=== PATIENT | male | born 1965 | race Caucasian/White ===

== ENCOUNTER 2023-05-29 11:35 | Emergency (ER) | payer MEDICARE, MEDICAID ==
[2023-05-29 11:49] VITALS: RESP 16; TEMP 96.6; O2SAT 96
[2023-05-29] MEDS ORDERED: Sodium Chloride 0.9% 1000 ML 1,000 ML ONE ×2 (12:00→13:09)
[2023-05-29] MEDS: Sodium Chloride 0.9% 1000 ML 1,000 ML IV STA ×2 (12:01→13:09)
[2023-05-29 12:13] LABS: Absolute Neutrophil Ct (ANC) 5.41 x10^3/uL (1.4-6.9); BASOPHIL % 0.9 % (0.0-0.4); Basophil (Absolute #) 0.06 x10^3/uL (0-0.4); Eosinophil % 1.9 % (0.00-5.0); Eosinophil (Absolute #) 0.13 x10^3/uL (0-0.5); Hematocrit 49.8 % (42-50); Hemoglobin 16.8 g/dL (12.5-18.0); IMMATURE GRAN # 0.02 x10^3u/L (0.00-0.03); IMMATURE GRAN % 0.3 % (0.00-0.4); Lymphocyte (Absolute #) 0.76 x10^3/uL (1.0-4.6); Mean Cell Volume 92.2 fL (78-100); Mean Corpuscular Hemoglobin 31.1 pg (26-32); Mean Corpuscular Hgb Concent. 33.7 g/dL (32-36); Mean Platelet Volume 11.4 fL (7.5-11.0); Monocyte (Absolute #) 0.51 x10^3/uL (0.0-1.3); Monocytes % 7.4 % (0.0-12.0); Neutrophil % 78.5 % (36.0-66.0); Platelet Count 213 x10^3/uL (150-450); Red Cell Distribution Width 13.6 % (11.5-14.0); White Blood Count 6.9 x10^3/uL (4.0-10.5)
[2023-05-29 12:22] LABS: ADD URINE CULTURE? NO (NO); Appearance Clear (Clear); Bacteria None Seen /HPF (None Seen); Bilirubin Negative (Negative); Blood Negative (Negative); Epithelial Cells None Seen /HPF (None Seen); Glucose, Urine >=1000 mg/dL (Negative); Hyaline Casts NONE SEEN /LPF (0-2); Ketones Negative (Negative); Leukocyte Esterase Negative (Negative); Nitrite Negative (Negative); Ph 5.5 (4.6-8.0); Protein,Urine Dip Trace (Negative); RBC 0-2 /HPF (0-5); Specific Gravity >=1.030 (1.005-1.030); WBC 0-2 /HPF (0-5)
--- NOTE | 2023-05-29 12:23 | XRAY ---
Indication: Cough. Low blood sugar. Comparison: None Portable chest inflated and clear with a few incidental tiny calcified granulomas. Heart not enlarged with left AICD. Bony thorax intact with mild degenerative changes. Impression: Nonacute chest with chronic features.
[2023-05-29 12:29] LABS: ALKALINE PHOSPHATASE 49 U/L (38-126); AMYLASE 79 U/L (30-110); ANION GAP 17.4 MEQ/L (5-15); BLOOD UREA NITROGEN 22 mg/dL (9-20); CHLORIDE 107 mmol/L (98-107); Calcium 8.5 mg/dL (8.4-10.2); Carbon Dioxide 21 mmol/L (22-30); Creatinine 1 1.29 mg/dL (0.66-1.25); EST GLOMERULAR FILTRATION RATE > 60.0 ML/MIN; Glucose 169 mg/dL (74-106); LIPASE 558 U/L (23-300); MAGNESIUM 2.2 mg/dL (1.6-2.3); Potassium 4.2 mmol/L (3.5-5.1); SGOT/AST 27 U/L (17-59); SGPT/ALT 26 U/L (0-50); SODIUM 141 mmol/L (137-145)
--- NOTE | 2023-05-29 12:33 | ERPHSYRPT ---
- History of Present Illness Time Seen by Provider: 05/29/23 11:50 Source: patient Exam Limitations: no limitations Patient Subjective Stated Complaint: pt here for low bs today at home lowest was 55, he had [employer] prior to arrival and bs is 168 at 1142 Triage Nursing Assessment: pt alert, resp easy, skin w/d/p, walked in, abd soft, no edema noted Physician History: Patient is a 57-year-old white male who presents with a complaint of low blood sugar which is symptomatic since 4 AM. He says that he had ringing in his ears he was dizzy he was a little bit clammy and he did try several things to raise it with liquids and solids without success. Apparently he had gone to [employer] last evening and had a rather generous meal and then at 4 AM awoke with the low blood sugar. He is treated with Ozempic and Toujeo and Jardiance. Before coming to the hospital this morning he did go to [employer] and had a cheeseb urger fries and a Coke. On arrival here his blood sugar was 168.He at the present time is asymptomatic. Timing/Duration: yesterday Severity: moderate Associated Symptoms: diaphoresis, other (Tremors, dizziness, affected vision,) Allergies/Adverse Reactions: No Known Drug Allergies Allergy (Unverified 12/26/12 15:36) Home Medications: Aspirin EC 81 mg [Ecotrin 81 mg] 81 mg PO DAILY 12/26/12 [History] Fluticasone/Salmeterol [Advair 250-50 Diskus] 1 each IH BID 12/26/12 [History] Hx Tetanus, Diphtheria Vaccination/Date Given: Yes Hx Influenza Vaccination/Date Given: Yes Hx Pneumococcal Vaccination/Date Given: No Immunizations Up to Date: Yes Travel Risk - International Travel Have you traveled outside of the country in past 3 weeks: No - Coronavirus Screening Are you exhibiting any of the following symptoms?: No Close contact with a COVID-19 positive Pt in past 14-21 Days: No - Vaccine Status Have you recieved a Covid-19 vaccination: Yes Care Information Associate: Moderna - Vaccination Dates Date of 2cond Vaccination (if applicable): 2020 - Review of Systems Constitutional: Night Sweats, No Fever, No Chills Eyes: Vision Changes Ears, Nose, & Throat: No Symptoms Respiratory: No Cough, No Dyspnea Cardiac: No Chest Pain, No Edema, No Syncope Abdominal/Gastrointestinal: No Abdominal Pain, No Nausea, No Vomiting, No Diarrhea Genitourinary Symptoms: No Dysuria Musculoskeletal: No Back Pain, No Neck Pain Skin: No Rash Neurological: No Dizziness, No Focal Weakness, No Sensory Changes Psychological: No Symptoms Endocrine: Excessive Sweating All Other Systems: Reviewed and Negative - Past Medical History Pertinent Past Medical History: Yes Cardiac History: High Cholesterol, Hypertension Respiratory History: COPD Endocrine Medical History: Diabetes Type II Psycho-Social History: Depression - Past Surgical History Past Surgical History: Yes Gastrointestinal: Other Other Surgical History: ABDOMINAL SURGERY TO REMOVE A BULLET. - Social History Smoking Status: Former smoker How long have you smoked: 5 YEARS Exposure to second hand smoke: No Drug Use: none Patient Lives Alone: No - Nursing Vital Signs Nursing Vital Signs: Initial Vital Signs Temperature 96.6 F 05/29/23 11:46 Pulse Rate 77 05/29/23 11:46 Respiratory Rate 16 05/29/23 11:46 Blood Pressure 119/75 05/29/23 11:46 O2 Sat by Pulse Oximetry 96 05/29/23 11:46 Pain Scale Pain Intensity 0 - Physical Exam General Appearance: no apparent distress, alert Eye Exam: PERRL/EOMI, eyes nml inspection Ears, Nose, Throat Exam: normal ENT inspection, TMs normal, pharynx normal, moist mucous membranes Neck Exam: normal inspection, non-tender, supple, full range of motion Respiratory Exam: normal breath sounds, lungs clear, No respiratory distress Cardiovascular Exam: regular rate/rhythm, normal heart sounds, normal peripheral pulses Gastrointestinal/Abdomen Exam: soft, normal bowel sounds, No tenderness, No mass Back Exam: normal inspection, normal range of motion, No CVA tenderness, No vertebral tenderness Extremity Exam: normal inspection, normal range of motion, pelvis stable Neurologic Exam: alert, oriented x 3, cooperative, normal mood/affect, nml cerebellar function, nml station & gait, sensation nml, No motor deficits Skin Exam: normal color, warm, dry, No rash Lymphatic Exam: No adenopathy SpO2: 96 - Course Nursing assessment & vital signs reviewed: Yes EKG Interpreted by Me: RATE (71), Other (Patient shows a ventricular paced rhythm and a biventricular paced rhythm no other interpretation possible) - Radiology Exams Chest X-ray Interpretation: Reviewed by me, Negative Ordered Tests: Active Orders 24 hr Category Date Time Status EKG-ER Only STAT Care 05/29/23 11:52 Active IV Insertion STAT Care 05/29/23 11:52 Active CHEST 1 VIEW (PORTABLE) Stat Exams 05/29/23 11:52 Completed AMYLASE Stat Lab 05/29/23 12:05 Completed CBC W DIFF Stat Lab 05/29/23 12:05 Completed CMP Stat Lab 05/29/23 12:05 Completed LIPASE Stat Lab 05/29/23 12:05 Completed Lactic Acid Stat Lab 05/29/23 11:52 Completed MAGNESIUM Stat Lab 05/29/23 12:05 Completed TROPONIN Q4H Lab 05/29/23 12:05 Completed TROPONIN Q4H Lab 05/29/23 16:00 Ordered TROPONIN Q4H Lab 05/29/23 20:00 Ordered UA W/RFX UR CULTURE Stat Lab 05/29/23 12:05 Completed Medication Summary Generic Name Dose Route Start Last Admin Trade Name Freq PRN Reason Stop Dose Admin Sodium Chloride 1,000 mls @ 999 mls/hr 05/29/23 13:09 05/29/23 13:09 Sodium Chloride 0.9% 1000 Ml IV 05/29/23 14:09 999 mls/hr .Q1H1M STA Administration Discontinued Medications Generic Name Dose Route Start Last Admin Trade Name Freq PRN Reason Stop Dose Admin Sodium Chloride 1,000 mls @ 999 mls/hr 05/29/23 11:52 05/29/23 12:01 Sodium Chloride 0.9% 1000 Ml IV 05/29/23 12:52 999 mls/hr .Q1H1M STA Administration Sodium Chloride Confirm 05/29/23 12:00 Sodium Chloride 0.9% 1000 Ml Administered 05/29/23 12:01 Dose 1,000 mls @ ud .ROUTE .STK-MED ONE Sodium Chloride Confirm 05/29/23 13:09 Sodium Chloride 0.9% 1000 Ml Administered 05/29/23 13:10 Dose 1,000 mls @ ud .ROUTE .STK-MED ONE Lab/Rad Data: Laboratory Result Diagrams 05/29/23 12:05 05/29/23 12:05 Laboratory Results 05/29/23 05/29/23 05/29/23 Range/Units 12:05 12:05 12:05 WBC (4.0-10.5) x10^3/uL RBC (4.1-5.6) x10^6/uL Hgb (12.5-18.0) g/dL Hct (42-50) % MCV (78-100) fL MCH (26-32) pg MCHC (32-36) g/dL RDW (11.5-14.0) % Plt Count (150-450) x10^3/uL MPV (7.5-11.0) fL Gran % (36.0-66.0) % Immature Gran % (Auto) (0.00-0.4) % Nucleat RBC Rel Count (0.00-0.1) % Eos # (Auto) (0-0.5) x10^3/uL Immature Gran # (Auto) (0.00-0.03) x10^3u/L Absolute Lymphs (auto) (1.0-4.6) x10^3/uL Absolute Monos (auto) (0.0-1.3) x10^3/uL Absolute Nucleated RBC (0.00-0.01) x10^3u/L Lymphocytes % (24.0-44.0) % Monocytes % (0.0-12.0) % Eosinophils % (0.00-5.0) % Basophils % (0.0-0.4) % Absolute Granulocytes (1.4-6.9) x10^3/uL Basophils # (0-0.4) x10^3/uL Sodium 141 (137-145) mmol/L Potassium 4.2 (3.5-5.1) mmol/L Chloride 107 (98-107) mmol/L Carbon Dioxide 21 L (22-30) mmol/L Anion Gap 17.4 H (5-15) MEQ/L BUN 22 H (9-20) mg/dL Creatinine 1.29 H (0.66-1.25) mg/dL Estimated GFR > 60.0 ML/MIN Glucose 169 H (74-106) mg/dL Hemoglobin A1c 5.73 (4.5-6.0) % Lactic Acid (0.4-2.0) Calcium 8.5 (8.4-10.2) mg/dL Magnesium 2.2 (1.6-2.3) mg/dL Total Bilirubin 1.70 H (0.2-1.3) mg/dL AST 27 (17-59) U/L ALT 26 (0-50) U/L Alkaline Phosphatase 49 (38-126) U/L Troponin I 0.014 (0.000-0.034) ng/mL Serum Total Protein 7.0 (6.3-8.2) g/dL Albumin 4.0 (3.5-5.0) g/dL Amylase 79 (30-110) U/L Lipase 558 H (23-300) U/L Urine Color (Yellow) Urine Appearance (Clear) Urine pH (4.6-8.0) Ur Specific [place] (1.005-1.030) Urine Protein (Negative) Urine Glucose (UA) (Negative) mg/dL Urine Ketones (Negative) Urine Blood (Negative) Urine Nitrite (Negative) Urine Bilirubin (Negative) Urine Urobilinogen (0.2) mg/dL Ur Leukocyte Esterase (Negative) U Hyaline Cast (Auto) (0-2) /LPF Urine Microscopic RBC (0-5) /HPF Urine Microscopic WBC (0-5) /HPF Ur Epithelial Cells (None Seen) /HPF Urine Bacteria (None Seen) /HPF Urine Culture Reflexed (NO) 05/29/23 05/29/23 05/29/23 Range/Units 12:05 12:05 11:52 WBC 6.9 (4.0-10.5) x10^3/uL RBC 5.40 (4.1-5.6) x10^6/uL Hgb 16.8 (12.5-18.0) g/dL Hct 49.8 (42-50) % MCV 92.2 (78-100) fL MCH 31.1 (26-32) pg MCHC 33.7 (32-36) g/dL RDW 13.6 (11.5-14.0) % Plt Count 213 (150-450) x10^3/uL MPV 11.4 H (7.5-11.0) fL Gran % 78.5 H (36.0-66.0) % Immature Gran % (Auto) 0.3 (0.00-0.4) % Nucleat RBC Rel Count 0.0 (0.00-0.1) % Eos # (Auto) 0.13 (0-0.5) x10^3/uL Immature Gran # (Auto) 0.02 (0.00-0.03) x10^3u/L Absolute Lymphs (auto) 0.76 L (1.0-4.6) x10^3/uL Absolute Monos (auto) 0.51 (0.0-1.3) x10^3/uL Absolute Nucleated RBC 0.00 (0.00-0.01) x10^3u/L Lymphocytes % 11.0 L (24.0-44.0) % Monocytes % 7.4 (0.0-12.0) % Eosinophils % 1.9 (0.00-5.0) % Basophils % 0.9 (0.0-0.4) % Absolute Granulocytes 5.41 (1.4-6.9) x10^3/uL Basophils # 0.06 (0-0.4) x10^3/uL Sodium (137-145) mmol/L Potassium (3.5-5.1) mmol/L Chloride (98-107) mmol/L Carbon Dioxide (22-30) mmol/L Anion Gap (5-15) MEQ/L BUN (9-20) mg/dL Creatinine (0.66-1.25) mg/dL Estimated GFR ML/MIN Glucose (74-106) mg/dL Hemoglobin A1c (4.5-6.0) % Lactic Acid 1.9 (0.4-2.0) Calcium (8.4-10.2) mg/dL Magnesium (1.6-2.3) mg/dL Total Bilirubin (0.2-1.3) mg/dL AST (17-59) U/L ALT (0-50) U/L Alkaline Phosphatase (38-126) U/L Troponin I (0.000-0.034) ng/mL Serum Total Protein (6.3-8.2) g/dL Albumin (3.5-5.0) g/dL Amylase (30-110) U/L Lipase (23-300) U/L Urine Color Yellow (Yellow) Urine Appearance Clear (Clear) Urine pH 5.5 (4.6-8.0) Ur Specific [place] >=1.030 A (1.005-1.030) Urine Protein Trace A (Negative) Urine Glucose (UA) >=1000 A (Negative) mg/dL Urine Ketones Negative (Negative) Urine Blood Negative (Negative) Urine Nitrite Negative (Negative) Urine Bilirubin Negative (Negative) Urine Urobilinogen 1.0 A (0.2) mg/dL Ur Leukocyte Esterase Negative (Negative) U Hyaline Cast (Auto) NONE SEEN (0-2) /LPF Urine Microscopic RBC 0-2 (0-5) /HPF Urine Microscopic WBC 0-2 (0-5) /HPF Ur Epithelial Cells None Seen (None Seen) /HPF Urine Bacteria None Seen (None Seen) /HPF Urine Culture Reflexed NO (NO) - Progress Progress: improved Medical Desision Making - Diagnostic Testing Diagnostic test were ordered, analyzed, and reviewed by me: Yes Radiological Interpretation: Reviewed by me - Risk of complications The pt has a mod risk of morbidity or mortality based on: Need for prescription drug management - Departure Departure Disposition: Home Clinical Impression: Hypoglycemia Condition: Stable Critical Care Time: No Referrals: [facility] [Primary Care Provider] - Follow up/PCP as directed Instructions: Low Blood Sugar, Adult (DC)
[2023-05-29 14:04] VITALS: BP 129/76; PULSE 67
== END 2023-05-29 14:07 | disposition home or self-care (01) ==
LOC: ED 11:35
DX: E11.649 Type 2 diabetes mellitus with hypoglycemia without coma (principal); R42 Dizziness and giddiness; H93.19 Tinnitus, unspecified ear; E78.5 Hyperlipidemia, unspecified; I10 Essential (primary) hypertension; Z79.85 Long-term (current) use of injectable non-insulin antidiabetic drugs; Z79.84 Long term (current) use of oral hypoglycemic drugs; Z79.899 Other long term (current) drug therapy
CPT/HCPCS: 36415; 71045; 80053; 81001; 82150; 82947; 83036; 83605; 83690; 83735; 84484; 85025; 93005; 99284

== ENCOUNTER 2023-06-11 04:16 | Emergency (ER) | payer MEDICARE, MEDICAID ==
[2023-06-11 04:43] LABS: Absolute Neutrophil Ct (ANC) 5.35 x10^3/uL (1.4-6.9); BASOPHIL % 0.8 % (0.0-0.4); Basophil (Absolute #) 0.06 x10^3/uL (0-0.4); Eosinophil % 2.4 % (0.00-5.0); Eosinophil (Absolute #) 0.17 x10^3/uL (0-0.5); Hematocrit 49.8 % (42-50); Hemoglobin 16.7 g/dL (12.5-18.0); IMMATURE GRAN # 0.01 x10^3u/L (0.00-0.03); IMMATURE GRAN % 0.1 % (0.00-0.4); Lymphocyte (Absolute #) 0.91 x10^3/uL (1.0-4.6); Lymphocytes % 12.7 % (24.0-44.0); Mean Cell Volume 92.7 fL (78-100); Mean Corpuscular Hemoglobin 31.1 pg (26-32); Mean Corpuscular Hgb Concent. 33.5 g/dL (32-36); Monocyte (Absolute #) 0.67 x10^3/uL (0.0-1.3); Monocytes % 9.3 % (0.0-12.0); Neutrophil % 74.7 % (36.0-66.0); Platelet Count 207 x10^3/uL (150-450); Red Blood Count 5.37 x10^6/uL (4.1-5.6); Red Cell Distribution Width 13.6 % (11.5-14.0); White Blood Count 7.2 x10^3/uL (4.0-10.5)
[2023-06-11 04:50] LABS: VBG BASE EXCESS -1.2 (-2.0-2.0); VBG CARBOXYHEMOGLOBIN 2.9 % T HGB (0.0-6.9); VBG HCO3- 23.6 meq/L (22-28); VBG HEMOGLOBIN 17.3; VBG O2 SATURATION 69.7 (95-100); VBG POTASSIUM 3.8 (3.5-5.1); VBG pH 7.39 (7.32-7.42)
[2023-06-11 04:56] VITALS: TEMP 96.2; O2SAT 96
[2023-06-11 04:57] LABS: ANION GAP 15.2 MEQ/L (5-15); BILIRUBIN,TOTAL 1.4 mg/dL (0.2-1.3); Calcium 8.5 mg/dL (8.4-10.2); Creatinine 1 1.65 mg/dL (0.66-1.25); EST GLOMERULAR FILTRATION RATE 45.6 ML/MIN; MAGNESIUM 2.1 mg/dL (1.6-2.3); Potassium 3.8 mmol/L (3.5-5.1)
[2023-06-11 05:03] LABS: Appearance Clear (Clear); Bacteria None Seen /HPF (None Seen); Bilirubin Negative (Negative); Blood Negative (Negative); Epithelial Cells None Seen /HPF (None Seen); Glucose, Urine >=1000 mg/dL (Negative); Hyaline Casts NONE SEEN /LPF (0-2); Ketones Negative (Negative); Leukocyte Esterase Negative (Negative); Nitrite Negative (Negative); Ph 5.5 (4.6-8.0); Protein,Urine Dip Trace (Negative); RBC 0-2 /HPF (0-5); Specific Gravity >=1.030 (1.005-1.030); WBC 0-2 /HPF (0-5)
--- NOTE | 2023-06-11 05:03 | ERPHSYRPT ---
- History of Present Illness Time Seen by Provider: 06/11/23 04:22 Source: patient Exam Limitations: no limitations Patient Subjective Stated Complaint: pt states that his CGM alarm woke him up at approx 0330 due to blood sugar of 41. he checked his CGM again immediately and it stated it was 42. after a few minutes he checked it again and the result was 53. he then drank 2 nondiet sodas at approx 0415 his BS was 122. upon arrival in ED room CGM reports BS of 176 at 0426 while hospital glucometer with result of 169 at same time. pt denies feeling poorly at this time and that he only came to the ED because his girlfriend made him. Triage Nursing Assessment: pt ambulated to room 9 independently with slow steady gait after standing on scales for weight acquisition. pt is alert and oriented times three, able to speak in complete sentences, able to move all extremities, and with resp even and unlabored. pt denies n/v, diarrhea, constipation, pain, sob, difficulty breathing, lightheadedness, dizziness, difficulty with urination or bowel elimination. Physician History: Patient is a 57-year-old male with diabetes uses insulin who was woke up by his continuous glucose monitor and alarm and found to have blood sugars in the 40s and then in the 50s but responded after drinking two sodas and was at 122 on his recheck. His significant other encouraged him to come to the emergency room for further evaluation. Timing/Duration: today, hour(s) (1), sudden Severity: moderate Modifying Factors: Improves With: eating (Drinking) Associated Symptoms: No nausea, No vomiting, No abdominal pain, No shortness of breath, No heartburn, No diaphoresis, No cough, No chills, No chest pain, No fever, No headaches, No loss of appetite, No malaise, No rash, No syncope, No seizure, No weakness Allergies/Adverse Reactions: No Known Drug Allergies Allergy (Verified 06/11/23 04:24) Home Medications: Albuterol Sulfate [Proair Digihaler] 90 mcg IH Q4HPRN PRN 06/11/23 [History] Amlodipine Besylate 5 mg [Norvasc 5 mg] 5 mg PO DAILY 06/11/23 [History] Apixaban [Eliquis] 5 mg PO BID 06/11/23 [History] Atorvastatin Calcium [Lipitor] 80 mg PO HS 06/11/23 [History] Empagliflozin [Jardiance] 2.5 tab PO DAILY 06/11/23 [History] Fluticasone/Umeclidin/Vilanter [Trelegy Ellipta 100-62.5-25] 1 each IH DAILY 06/11/23 [History] Furosemide 40 mg [Lasix 40 MG] 40 mg PO DAILY 06/11/23 [History] Gabapentin [Neurontin ] 300 mg PO HS 06/11/23 [History] Insulin Glargine,Hum.rec.anlog [Toujeo Solostar] 28 unit SQ DAILY 06/11/23 [History] Metoprolol Succinate 100 mg [Toprol Xl 100 MG] 100 mg PO DAILY 06/11/23 [History] Nitroglycerin 0.4 mg Tablet [Nitrostat 0.4 MG Tablet] 0.4 mg SL Q5MIN PRN MR X 3 PRN 06/11/23 [History] Sacubitril/Valsartan [Entresto 97 mg-103 mg Tablet] 1 each PO BID 06/11/23 [History] Semaglutide [Ozempic] 0.5 mg SQ WEEKLY 06/11/23 [History] Spironolactone 25 mg [Aldactone 25 MG] 0.5 tab PO DAILY 06/11/23 [History] Hx Tetanus, Diphtheria Vaccination/Date Given: Yes Hx Influenza Vaccination/Date Given: Yes Hx Pneumococcal Vaccination/Date Given: No Immunizations Up to Date: Yes Travel Risk - International Travel Have you traveled outside of the country in past 3 weeks: No - Coronavirus Screening Are you exhibiting any of the following symptoms?: No Close contact with a COVID-19 positive Pt in past 14-21 Days: No - Vaccine Status Have you recieved a Covid-19 vaccination: Yes Sub Master: Moderna - Vaccination Dates Date of 2cond Vaccination (if applicable): 2020 - Review of Systems Constitutional: No Fever, No Chills, No Lethargy, No Malaise Eyes: No Symptoms, No Eye Pain, No Vision Changes Ears, Nose, & Throat: No Symptoms, No Nose Congestion, No Throat Pain Respiratory: No Cough, No Dyspnea Cardiac: No Chest Pain, No Edema, No Syncope Abdominal/Gastrointestinal: No Abdominal Pain, No Nausea, No Vomiting, No Diarrhea Genitourinary Symptoms: No Dysuria Musculoskeletal: No Back Pain, No Neck Pain Skin: No Rash Neurological: No Dizziness, No Focal Weakness, No Sensory Changes Psychological: No Symptoms Endocrine: No Symptoms, No Polyuria, No Polydipsia All Other Systems: Reviewed and Negative - Past Medical History Pertinent Past Medical History: Yes Neurological History: No Pertinent History ENT History: No Pertinent History Cardiac History: Congestive Heart Failure, Coronary Artery Disease, High Cholest sunil, Hypertension, Other Respiratory History: COPD Endocrine Medical History: Diabetes Type II Musculoskeletal History: No Pertinent History GI Medical History: No Pertinent History History: Renal Disease Psycho-Social History: Depression Male Reproductive Disorders: No Pertinent History Other Medical History: PPM/Defib. stage 3 renal failure - Past Surgical History Past Surgical History: Yes Neuro Surgical History: No Pertinent History Cardiac: Cardiac Catheterization, Cardiac Stent, Internal Defibrillator, Pacemaker Respiratory: No Pertinent History Gastrointestinal: Other Genitourinary: No Pertinent History Musculoskeletal: No Pertinent History Male Surgical History: No Pertinent History Other Surgical History: ABDOMINAL SURGERY TO REMOVE A BULLET. - Social History Smoking Status: Former smoker How long have you smoked: 5 YEARS Exposure to second hand smoke: No Drug Use: none Patient Lives Alone: Yes - Nursing Vital Signs Nursing Vital Signs: Initial Vital Signs Pulse Rate 77 06/11/23 04:30 Respiratory Rate 20 06/11/23 04:30 Blood Pressure 99/67 06/11/23 04:30 O2 Sat by Pulse Oximetry 97 06/11/23 04:30 Pain Scale Pain Intensity 0 - Physical Exam General Appearance: no apparent distress, alert Eye Exam: PERRL/EOMI, eyes nml inspection Ears, Nose, Throat Exam: normal ENT inspection, TMs normal, pharynx normal, moist mucous membranes Neck Exam: normal inspection, non-tender, supple, full range of motion, No JVD Respiratory Exam: normal breath sounds, lungs clear, No respiratory distress Cardiovascular Exam: regular rate/rhythm, normal heart sounds, normal peripheral pulses Gastrointestinal/Abdomen Exam: soft, normal bowel sounds, No tenderness, No mass, No rebound, No hepatomegaly Back Exam: normal inspection, normal range of motion, No CVA tenderness, No vertebral tenderness Extremity Exam: normal inspection, normal range of motion, pelvis stable Neurologic Exam: alert, oriented x 3, cooperative, collections rep II-XII nml as tested, normal mood/affect, nml cerebellar function, nml station & gait, sensation nml, No motor deficits Skin Exam: normal color, warm, dry, No rash, No cyanosis, No jaundice Lymphatic Exam: No adenopathy SpO2 Interpretation: normal SpO2: 96 O2 Delivery: Room Air - Course Nursing assessment & vital signs reviewed: Yes Ordered Tests: Active Orders 24 hr Category Date Time Status IV Insertion STAT Care 06/11/23 04:35 Active POCT Glucose Check STAT Care 06/11/23 04:23 Active CBC W DIFF Stat Lab 06/11/23 04:32 Completed CMP Stat Lab 06/11/23 04:50 Completed LIPASE Stat Lab 06/11/23 04:50 Completed MAGNESIUM Stat Lab 06/11/23 04:50 Completed POCT GLUCOSE Stat Lab 06/11/23 04:25 Completed UA W/RFX UR CULTURE Stat Lab 06/11/23 04:55 Completed VENOUS BLOOD GAS Stat Lab 06/11/23 04:40 Completed Lab/Rad Data: Laboratory Result Diagrams 06/11/23 04:32 06/11/23 04:50 Laboratory Results 06/11/23 06/11/23 06/11/23 Range/Units 04:55 04:50 04:40 WBC (4.0-10.5) x10^3/uL RBC (4.1-5.6) x10^6/uL Hgb (12.5-18.0) g/dL Hct (42-50) % MCV (78-100) fL MCH (26-32) pg MCHC (32-36) g/dL RDW (11.5-14.0) % Plt Count (150-450) x10^3/uL MPV (7.5-11.0) fL Gran % (36.0-66.0) % Immature Gran % (Auto) (0.00-0.4) % Nucleat RBC Rel Count (0.00-0.1) % Eos # (Auto) (0-0.5) x10^3/uL Immature Gran # (Auto) (0.00-0.03) x10^3u/L Absolute Lymphs (auto) (1.0-4.6) x10^3/uL Absolute Monos (auto) (0.0-1.3) x10^3/uL Absolute Nucleated RBC (0.00-0.01) x10^3u/L Lymphocytes % (24.0-44.0) % Monocytes % (0.0-12.0) % Eosinophils % (0.00-5.0) % Basophils % (0.0-0.4) % Absolute Granulocytes (1.4-6.9) x10^3/uL Basophils # (0-0.4) x10^3/uL pO2/FiO2 Ratio 21.0 % VBG pH 7.39 (7.32-7.42) VBG pCO2 at Pat Temp 39 L (42-55) mm/Hg VBG pO2 at Pat Temp 41 H (25-40) mm/Hg VBG HCO3 23.6 (22-28) meq/L VBG O2 Sat (Phuong) 69.7 L (95-100) VBG Base Excess -1.2 (-2.0-2.0) VBG Hemoglobin 17.3 VBG Carboxyhemoglobin 2.9 (0.0-6.9) % T HGB POC Potassium 3.8 (3.5-5.1) Sodium 140 (137-145) mmol/L Potassium 3.8 (3.5-5.1) mmol/L Chloride 107 (98-107) mmol/L Carbon Dioxide 21 L (22-30) mmol/L Anion Gap 15.2 H (5-15) MEQ/L BUN 23 H (9-20) mg/dL Creatinine 1.65 H (0.66-1.25) mg/dL Estimated GFR 45.6 ML/MIN Glucose 160 H (74-106) mg/dL POC Glucometer (74 to 106) mg/dL Calcium 8.5 (8.4-10.2) mg/dL Magnesium 2.1 (1.6-2.3) mg/dL Total Bilirubin 1.40 H (0.2-1.3) mg/dL AST 28 (17-59) U/L ALT 26 (0-50) U/L Alkaline Phosphatase 55 (38-126) U/L Serum Total Protein 7.0 (6.3-8.2) g/dL Albumin 4.0 (3.5-5.0) g/dL Lipase 190 (23-300) U/L Urine Color Yellow (Yellow) Urine Appearance Clear (Clear) Urine pH 5.5 (4.6-8.0) Ur Specific Norman >=1.030 A (1.005-1.030) Urine Protein Trace A (Negative) Urine Glucose (UA) >=1000 A (Negative) mg/dL Urine Ketones Negative (Negative) Urine Blood Negative (Negative) Urine Nitrite Negative (Negative) Urine Bilirubin Negative (Negative) Urine Urobilinogen 1.0 A (0.2) mg/dL Ur Leukocyte Esterase Negative (Negative) U Hyaline Cast (Auto) NONE SEEN (0-2) /LPF Urine Microscopic RBC 0-2 (0-5) /HPF Urine Microscopic WBC 0-2 (0-5) /HPF Ur Epithelial Cells None Seen (None Seen) /HPF Urine Bacteria None Seen (None Seen) /HPF Urine Culture Reflexed NO (NO) 06/11/23 06/11/23 Range/Units 04:32 04:25 WBC 7.2 (4.0-10.5) x10^3/uL RBC 5.37 (4.1-5.6) x10^6/uL Hgb 16.7 (12.5-18.0) g/dL Hct 49.8 (42-50) % MCV 92.7 (78-100) fL MCH 31.1 (26-32) pg MCHC 33.5 (32-36) g/dL RDW 13.6 (11.5-14.0) % Plt Count 207 (150-450) x10^3/uL MPV 11.0 (7.5-11.0) fL Gran % 74.7 H (36.0-66.0) % Immature Gran % (Auto) 0.1 (0.00-0.4) % Nucleat RBC Rel Count 0.0 (0.00-0.1) % Eos # (Auto) 0.17 (0-0.5) x10^3/uL Immature Gran # (Auto) 0.01 (0.00-0.03) x10^3u/L Absolute Lymphs (auto) 0.91 L (1.0-4.6) x10^3/uL Absolute Monos (auto) 0.67 (0.0-1.3) x10^3/uL Absolute Nucleated RBC 0.00 (0.00-0.01) x10^3u/L Lymphocytes % 12.7 L (24.0-44.0) % Monocytes % 9.3 (0.0-12.0) % Eosinophils % 2.4 (0.00-5.0) % Basophils % 0.8 (0.0-0.4) % Absolute Granulocytes 5.35 (1.4-6.9) x10^3/uL Basophils # 0.06 (0-0.4) x10^3/uL pO2/FiO2 Ratio % VBG pH (7.32-7.42) VBG pCO2 at Pat Temp (42-55) mm/Hg VBG pO2 at Pat Temp (25-40) mm/Hg VBG HCO3 (22-28) meq/L VBG O2 Sat (Phuong) (95-100) VBG Base Excess (-2.0-2.0) VBG Hemoglobin VBG Carboxyhemoglobin (0.0-6.9) % T HGB POC Potassium (3.5-5.1) Sodium (137-145) mmol/L Potassium (3.5-5.1) mmol/L Chloride (98-107) mmol/L Carbon Dioxide (22-30) mmol/L Anion Gap (5-15) MEQ/L BUN (9-20) mg/dL Creatinine (0.66-1.25) mg/dL Estimated GFR ML/MIN Glucose (74-106) mg/dL POC Glucometer 169 H (74 to 106) mg/dL Calcium (8.4-10.2) mg/dL Magnesium (1.6-2.3) mg/dL Total Bilirubin (0.2-1.3) mg/dL AST (17-59) U/L ALT (0-50) U/L Alkaline Phosphatase (38-126) U/L Serum Total Protein (6.3-8.2) g/dL Albumin (3.5-5.0) g/dL Lipase (23-300) U/L Urine Color (Yellow) Urine Appearance (Clear) Urine pH (4.6-8.0) Ur Specific Norman (1.005-1.030) Urine Protein (Negative) Urine Glucose (UA) (Negative) mg/dL Urine Ketones (Negative) Urine Blood (Negative) Urine Nitrite (Negative) Urine Bilirubin (Negative) Urine Urobilinogen (0.2) mg/dL Ur Leukocyte Esterase (Negative) U Hyaline Cast (Auto) (0-2) /LPF Urine Microscopic RBC (0-5) /HPF Urine Microscopic WBC (0-5) /HPF Ur Epithelial Cells (None Seen) /HPF Urine Bacteria (None Seen) /HPF Urine Culture Reflexed (NO) - Progress Progress: unchanged (Patient maintains same status status time in the emergency department) Progress Note: 06/11/23 05:07 Patient remains asymptomatic throughout his time in the emergency department and I reviewed with him his labs that showed that his creatinine has increased from his last visit here in the emergency room on May 26, 2023. Patient states he has stage III chronic kidney disease, but his last emergency room visit it had improved but in the past and reviewing other labs he has been at stage III chronic kidney disease level. 06/11/23 05:16 Patient's 57-year-old male with diabetes who takes long-acting insulin who comes in due to being awoken by his alarm from his continuous glucose monitoring device with his blood sugar in the 40s, but they improved after he drank 2 sodas. Patient came to the emergency room for further evaluation and a secondary evaluation showed no obvious signs of infection or concerns for sepsis, no obvious symptoms consistent with any type of cardiac etiology, and his lab work did not show any signs of any hepatic dysfunction as although he did have an elevated bilirubin it was less from his previous and not significant elevated above the normal range. So with no signs of any inflammation of the liver, no source of any obvious severe infection on lab work and urine as well as examination, and no concern for heart disease, it was found that patient's creatinine was elevated in comparison to what was 16 days ago, and I feel this is what is influencing his low blood sugar with his long-acting insulin as well as other medications that may influence insulin also. I reviewed with patient that he is to follow-up with his primary care provider on 06/11/2023 to discuss if he needs to decrease his dose since he has some renal insufficiency that is different from 2 weeks ago and he does know he has stage III chronic kidney disease. Patient this time does not require inpatient admission and can be followed up as an outpatient with close follow-up with his primary care provider and he understood this. Patient understands return back to the nearest emergency room if he has any new dizziness, new syncopal events, near syncopal events, new palpitations, new chest pain, new dyspnea, new fever, new dysuria, any flank pain, new abdominal pain, new vomiting, new diarrhea, new focal weakness or headache or change in vision or any other concerning signs or symptoms that were not present at today's emergency room visit for immediate reevaluation in the nearest emergency department Counseled pt/family regarding: lab results, diagnosis, need for follow-up Medical Desision Making - External Record(s) Reviewed Records reviewed as a part of evaluation & management: Discharge Summary (Emergency room visit from 05/26/2023 showed a hemoglobin A1c of 5.73, creatinine at 1.29 with GFR greater than 60, and total bilirubin at 1.70) - Diagnostic Testing Diagnostic test were ordered, analyzed, and reviewed by me: Yes - Risk of complications Minimal Risk: Minimal risk of morbidity Low Risk: Low risk of morbidity from additional dx testing or treatment The pt has a mod risk of morbidity or mortality based on: Need for prescription drug management - Departure Departure Disposition: Home Clinical Impression: Hypoglycemia, Renal insufficiency, Hyperbilirubinemia Condition: Good Critical Care Time: No Referrals: NIKO HALL FNP [Primary Care Provider] - Follow up with PCP 1 day Instructions: Low Blood Sugar, Adult (DC) Additional Instructions: Return back to the nearest emergency department if you have any new dizziness, feeling overall not well, new shortness of breath, new loss of consciousness, any fainting spells, new heart racing sensation, new chest pain, new fever, new abdominal pain, new vomiting, new diarrhea, new skin rash or any other concerning signs or symptoms that were not present at today's emergency room visit for immediate reevaluation in the nearest emergency department Forms: Work/School Release Form
[2023-06-11 05:04] LABS: ADD URINE CULTURE? NO (NO)
[2023-06-11 05:19] VITALS: RESP 18
[2023-06-11 05:26] VITALS: BP 104/67; PULSE 74
== END 2023-06-11 05:27 | disposition home or self-care (01) ==
LOC: ED 04:16
DX: E11.649 Type 2 diabetes mellitus with hypoglycemia without coma (principal); E11.22 Type 2 diabetes mellitus with diabetic chronic kidney disease; I13.0 Hypertensive heart and chronic kidney disease with heart failure and stage 1 through stage 4 chronic kidney disease, or unspecified chronic kidney disease; I50.9 Heart failure, unspecified; N18.30 Chronic kidney disease, stage 3 unspecified; E78.5 Hyperlipidemia, unspecified; Z79.01 Long term (current) use of anticoagulants; Z79.84 Long term (current) use of oral hypoglycemic drugs; Z79.4 Long term (current) use of insulin; Z79.85 Long-term (current) use of injectable non-insulin antidiabetic drugs; Z79.899 Other long term (current) drug therapy
CPT/HCPCS: 36415; 80053; 81001; 82805; 82947; 83690; 83735; 85025; 99283